=== PATIENT | female | born 1945 | race Caucasian/White ===

== ENCOUNTER 2018-05-30 08:25 | Emergency (ER) | payer OTHER, MEDICARE ==
[~2018-05-30] VITALS: Ht 157.5 cm; Wt 68.9 kg
[2018-05-30 09:50] LABS: ABSOLUTE BASOPHIL COUNT 0 /CUMM (0.0-0.2); ABSOLUTE EOSINOPHIL COUNT 0.2 /CUMM (0.0-0.7); ABSOLUTE GRANULOCYTE CT 4.9 /CUMM (1.4-6.5); ABSOLUTE LYMPH COUNT 3.1 /CUMM (1.2-3.4); ABSOLUTE MONOCYTE COUNT 0.6 /CUMM (0.10-0.60); BASOPHIL % 0.4 % (0.0-2.0); GRANULOCYTE % 55.7 % (42.2-75.2); HEMATOCRIT 41.3 % (37-47); MEAN CORPUSCULAR HGB 26.7 PG (27.0-31.0); MEAN CORPUSCULAR HGB CONC 32.3 G/DL (33.0-37.0); MEAN CORPUSCULAR VOLUME 82.9 FL (81.0-99.0); MEAN PLATELET VOLUME 9.7 FL (7.4-10.4); PLATELET COUNT 149 /CUMM (130-400); RBC DISTRIBUTION WIDTH 13.7 % (11.5-14.5); RED BLOOD CELL CT 4.99 /CUMM (4.20-5.40); WHITE BLOOD CELL COUNT 8.9 /CUMM (4.8-10.8)
--- NOTE | 2018-05-30 09:56 | ED GI/GU/ABDOMINAL COMPLAINT ---
History of Present Illness General Chief Complaint: Abdominal Pain/Flank Pain Stated Complaint: ABD PAIN, BLEEDING Source: patient Exam Limitations: no limitations Vital Signs & Intake/Output Vital Signs & Intake/Output Vital Signs Date Time Temp Pulse Resp B/P B/P Pulse O2 O2 Flow FiO2 Mean Ox Delivery Rate 05/30 1049 98.5 73 20 134/68 100 Room Air 05/30 0955 99 Room Air 05/30 0829 98.4 87 18 159/79 98 Room Air Allergies Coded Allergies: NO KNOWN ALLERGIES (05/30/18) Triage Note: 72 YO FEAMLE TO [facility] FOR EVAL OF ABD CRAMPING AND +BLOOD RECTALLY THIS AM. STATES CRAMPING STARTED LAST PM AND SHE HAD SOME DIARRHEA, STATES "I WENT TO BED AND I FELT FINE" STATES THIS AM SHE WOKE UP AND HAD BLOOD ON HER UNDERWEAR. DENIES ABD CRAMPING AT THIS TIME. REPORTS YEARS AGO SHE WAS DX WITH COLITIS. Triage Nurses Notes Reviewed? yes ? N Is pt currently ? No HPI: 72-year-old female who presents to the emergency department with a one-day history of intermittent lower abdominal cramping and diarrhea. She tells me that she had prior history of which she thinks was either infectious versus ischemic colitis. She was seen by her GI physician at that time for follow-up after she was seen in the emergency department many years ago for the similar symptoms. Today she notes that yesterday evening she had subjective fevers and chills with sweats. She had one episode of bright red blood in her stool. This morning she notes that the stool was not bloody at all but was still very loose. She has not measured a fever. She denies any nausea or vomiting. She feels slightly weak. She has not seen her GI physician some time but did have a colonoscopy after the last episode which I believe was in 2012. Currently she denies any abdominal cramping. She is not tried any medications to help this nothing seems to worsen her symptoms at this time. She has not had any changes in her diet or medications. She takes only baby aspirin for preventative purposes. (Yeimi ROTHMAN,[facility]) Reconcile Medications Ciprofloxacin HCl (Cipro) 500 MG TABLET 1 TAB PO BID colitis Metronidazole (Flagyl) 500 MG TABLET 1 TAB PO BID colitis (Amanda JESSICA,[facility]) Past History Travel History Traveled to [place] past 21 day No Medical History Any Pertinent Medical History? 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 No (Ibis Jalloh PA-C) Review of Systems Review of Systems Constitutional: Reports: see HPI, chills, weakness. Denies: unexplained weight loss. EENTM: Denies: no symptoms. Respiratory: Denies: no symptoms. Cardiovascular: Denies: no symptoms. GI: Reports: see HPI, diarrhea, bloody stool, changes in stool. Genitourinary: Denies: no symptoms. Musculoskeletal: Denies: no symptoms. Skin: Denies: no symptoms. Neurological/Psychological: Denies: no symptoms. Hematologic/Endocrine: Reports: bleeding. Immunologic/Allergic: Denies: no symptoms. All Other Systems: Reviewed and Negative (Ibis Jalloh PA-C) Physical Exam Physical Exam General Appearance: well developed/nourished, no apparent distress, alert, awake Head: atraumatic, normal appearance Eyes: Bilateral: normal appearance, PERRL, EOMI. Neck: normal inspection, supple Respiratory: normal breath sounds, no respiratory distress Cardiovascular: regular rate/rhythm Gastrointestinal: normal bowel sounds, soft, non-tender Rectal: deferred Extremities: normal range of motion Neurologic/Psych: no motor/sensory deficits, awake, alert, oriented x 3 Skin: intact, normal color, warm/dry Core Measures ACS in differential dx? No Sepsis Present: No Sepsis Focused Exam Completed? No (Ibis Jalloh PA-C) Progress Differential Diagnosis: colitis Plan of Care: Orders Procedure Date/time Status COMPREHENSIVE METABOLIC PANEL 05/30 09 Complete CBC WITHOUT DIFFERENTIAL 05/30 09 Complete Laboratory Tests 05/30/18 0941: Anion Gap 7, Estimated GFR > 60, BUN/Creatinine Ratio 43.3 H, Glucose 100 H, Calcium 9.5, Total Bilirubin 0.8, AST 27, ALT 26, Alkaline Phosphatase 72, Total Protein 7.1, Albumin 4.2, Globulin 2.9, Albumin/Globulin Ratio 1.4, CBC w Diff NO MAN DIFF REQ, RBC 4.99, MCV 82.9, MCH 26.7 L, MCHC 32.3 L, RDW 13.7, MPV 9.7, Gran % 55.7, Lymphocytes % 34.6, Monocytes % 7.3, Eosinophils % 2.0, Basophils % 0.4, Absolute Granulocytes 4.9, Absolute Lymphocytes 3.1, Absolute Monocytes 0.6, Absolute Eosinophils 0.2, Absolute Basophils 0 Patient had a previous episode very similar to this plan of colitis. She was treated with Cipro and Flagyl and actually responded well. She had a follow-up with her GI doctor and subsequent colonoscopy. She tells me that she was told she had ischemic colitis and not infectious colitis. At this time will order lab work and make sure CT with IV and oral contrast are done to rule out these potential diagnoses. IV fluids will be implemented as well. CT scan notes recurrent colitis. Patient is eating and drinking. She wanted to discharge home. We'll prescribe Cipro and Flagyl and have her follow with her GI doctor. She is agreeable to this plan. Initial ED EKG: none (Ibis Jalloh PA-C) Departure Departure Disposition: HOME OR SELF CARE Condition: Stable Clinical Impression Primary Impression: Colitis Secondary Impressions: Colitis presumed infectious Referrals: Cain JESSICA,[facility] (PCP/Family) Departure Forms: Customer Survey General Discharge Information Prescriptions: Current Visit Scripts Ciprofloxacin HCl (Cipro) 1 TAB PO BID #14 TAB Metronidazole (Flagyl) 1 TAB PO BID #14 TAB (Ibis Jalloh PA-C) PA/TEACHERS' AIDE Co-Sign Statement Statement: ED Attending supervision documentation- [] I saw and evaluated the patient. I have also reviewed all the pertinent lab results and diagnostic results. I agree with the findings and the plan of care as documented in the PA's/TEACHERS' AIDE's documentation. [x] I have reviewed the ED Record and agree with the PA's/TEACHERS' AIDE's documentation. [] Additions or exceptions (if any) to the PAs/TEACHERS' AIDE's note and plan are summarized below: [] (Amanda JESSICA,[facility])
--- NOTE | 2018-05-30 12:16 | CT SCAN REPORT ---
EXAMINATION: CT ABDOMEN AND PELVIS WITH CONTRAST CLINICAL INFORMATION: Abdominal pain and rectal bleeding. COMPARISON: 06/21/2012 TECHNIQUE: Multidetector volumetric imaging was performed of the abdomen and pelvis following IV administration of 95 mL of Optiray 320 intravenous contrast. Sagittal and coronal reformatted images were obtained on the technologist's workstation. DLP: 315 mGy-cm FINDINGS: LUNG BASES: Minimal atelectasis in dependent aspect of each lower lobe. LIVER, GALLBLADDER, AND BILIARY TREE: The liver has normal size, shape, and attenuation. No focal hepatic lesion. The gallbladder is normal. No intrahepatic or extrahepatic bile duct dilatation. PANCREAS: Unremarkable. SPLEEN: Spleen is normal in size. Small, 0.5 cm hypodense focus in the medial aspect of the spleen could represent a cyst but is too small for definitive characterization. ADRENAL GLANDS: Unremarkable. KIDNEYS AND URETERS: The kidneys have normal size, shape, and attenuation. No hydroureteronephrosis, urolithiasis or perinephric stranding. BLADDER: Unremarkable. BOWEL AND PERITONEUM: Loops of bowel are normal in caliber. Appendix is normal. Circumferential wall thickening of the distal transverse, descending and sigmoid colon from colitis; however, no overt rectal involvement of the inflammatory process. The wall of the descending colon measures up to 1.1 cm thick. No bowel perforation or abscess. ABDOMINAL WALL: Unremarkable. LYMPH NODES: No pathologic sized lymph nodes in the abdomen or pelvis. No inguinal lymphadenopathy. VASCULAR: Atherosclerosis of the abdominal aorta and iliac arteries without aneurysm. Celiac trunk, SMA and MERLIN are widely patent. No evidence of mesenteric vessel occlusion/thrombosis. PELVIC: The uterus is unremarkable. No pelvic mass or free fluid. MUSCULOSKELETAL: At L4-L5, there is vacuum disc degeneration, osteophytosis and mild Schmorl's node formation. No suspicious bone lesions. IMPRESSION: The patient had colitis on 06/21/2012. The current examination shows recurrent colitis involving the transverse, descending and sigmoid colon. The specific cause of the colitis is uncertain, but differential diagnosis would include pseudomembranous colitis.
[2018-05-30] MEDS ORDERED: CIPRO500 M1 PO (12:51)
[2018-05-30] MEDS ORDERED: FLAGYL500 MG PO (12:51)
[2018-05-30 13:04] VITALS: BP 130/70
== END 2018-05-30 13:30 ==
LOC: ERH 08:25
PROVIDERS: Physician Assistant Medical
DX: K52.9 Noninfective gastroenteritis and colitis, unspecified (principal)
CPT/HCPCS: 74177; 96360; 96361